=== PATIENT | female | born 1975 | race Caucasian/White ===

== ENCOUNTER 2021-04-28 20:33 | Emergency (ER) | payer OTHER ==
--- OUTSIDE RECORDS SUMMARY | 2021-04-28 20:35 | XMS REPORT | Continuity of Care Document ---
:1975 Author Organization [facility] Address [address] [place] [address] Care Team Providers Name Role Phone Unavailable Unavailable Unavailable Problems Condition Condition Condition Status Onset Resolution Last Treating Co mments Source Name Details Category Date Date Treatment Clinician Date Anxiety Anxiety Problem [facility] Vaginal Vaginal Problem Active [facility] Acute Acute Problem Active [facility] right-side right-side Connie kes - d low back d low back Me moria pain pain l without without [facility] sciatica sciatica ent Clinics PCOS PCOS Problem Active [facility] (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 Medications Ordered Filled Start Stop Current Ordering Indication Dosage Frequency Signature Comments Components Source Medication Medication Date Date Medication? Clinician (SIG) Name Name Paroxetine Paroxetine Yes Laura [address] [facility] HCl HCl 8-27 [facility] in the [facility] - 00:00: morning Memoria 00 l [facility]ics Adipex-P Adipex-P Yes Laura [address] [facility] Procedures This patient has no known procedures. Encounters Start End Encounter Admission Attending Care Care Encounter Source Date/Time Date/Time Type Type Clinicians Facility Department ID 2019-09-15 2019-09-15 Outpatient [facility] [id number] [facility] [address] 15:40:00 15:40:00 [facility] 2019-06-30 2019-06-30 Outpatient [facility] [id number] [facility] 15:20:00 15:20:00 [facility] ent Clinics Results This patient has no known results.
--- NOTE | 2021-04-28 23:27 | ER ---
Nurse's Notes [facility] Name: Kimberly Osborne Age: 46 yrs Sex: Female : 1975 Arrival Date: 04/28/2021 Time: 20:36 Bed 19 Private MD: Diagnosis: Cutaneous abscess of left lower limb Presentation: 04/28 20:56 Chief complaint: Patient states: Abscess on L outer thigh since yesterday. Coronavirus ca1 screen: Client denies travel out of the [place] in the last 14 days. At this time, the client does not indicate any symptoms associated with coronavirus-19. Ebola Screen: Patient negative for fever greater than or equal to 101.5 degrees Fahrenheit, and additional compatible Ebola Virus Disease symptoms Patient denies exposure to infectious person. Patient denies travel to an Ebola-affected area in the 21 days before illness onset. No symptoms or risks identified at this time. Initial Sepsis Screen: Does the patient meet any 2 criteria? No. Patient's initial sepsis screen is negative. Does the patient have a suspected source of infection? No. Patient's initial sepsis screen is negative. Risk Assessment: Do you want to hurt yourself or someone else? Patient reports no desire to harm self or others. Onset of symptoms was April 28, 2021. 20:56 Method Of Arrival: Ambulatory ca1 20:56 Acuity: DEVIN 4 ca1 Triage Assessment: 23:00 General: Appears in no apparent distress. comfortable, Behavior is calm, cooperative. rr5 23:00 Bite description: bite sustained to lateral aspect of left thigh by an unknown animal, rr5 animal information: vaccination(s) is unknown. [employer]: 20:58 LMP N/A - Post-menopause ca1 Historical: - Allergies: 20:58 No Known Allergies; ca1 - Home Meds: 20:58 Amoxicillin Oral [Active]; ca1 - PMHx: 20:58 None; ca1 - PSHx: 20:58 ; ca1 - Immunization history:: Client reports receiving the 2nd dose of the Covid vaccine, Client reports receiving the 1st dose of the Covid vaccine, Flu vaccine is not up to date. - Social history:: Smoking status: Patient denies any tobacco usage or history of. Screenin:00 Abuse screen: Denies threats or abuse. Denies injuries from another. Nutritional rr5 screening: No deficits noted. Tuberculosis screening: No symptoms or risk factors identified. Fall Risk None identified. Total Mo Fall Scale indicates No Risk (0-24 pts). Assessment: 23:00 General: Appears in no apparent distress. comfortable, Behavior is calm. rr5 23:00 Pain: Complains of pain in lateral aspect of left thigh Pain Quality of pain is rr5 described as aching, Pain began gradually, Is intermittent. Neuro: Level of Consciousness is awake, alert, obeys commands, Oriented to person, place, time. Cardiovascular: Patient's skin is warm and dry. Respiratory: Airway is patent Respiratory effort is even, unlabored, Respiratory pattern is regular, symmetrical. Derm: Skin is intact, is healthy with good turgor, Skin is dry, Skin is pink, warm \T\ dry. Skin temperature is warm Wound noted lateral aspect of left thigh Wound is redness and warm to touch. 23:50 Reassessment: Patient appears in no apparent distress at this time. Patient is alert, rr5 oriented x 3, equal unlabored respirations, skin warm/dry/pink. discharge instruction given and explained without complaints made. Vital Signs: 20:56 BP 162 / 79; Pulse 71; Resp 18; Temp 98.8(TE); Pulse Ox 100% on R/A; Weight 78.47 kg ca1 (R); Height 5 ft. 6 in. (167.64 cm) (R); Pain 5/10; 23:50 BP 134 / 85; Pulse 75; Resp 19; Pulse Ox 98% ; rr5 20:56 Body Mass Index 27.92 (78.47 kg, 167.64 cm) ca1 ED Course: 20:36 Patient arrived in ED. bp1 20:57 Triage completed. ca1 20:58 Arm band placed on right wrist. ca1 23:00 Patient has correct armband on for positive identification. Bed in low position. Call rr5 light in reach. 23:02 Tomer Moreno RN is Primary Nurse. rr5 23:05 Iam Chappell PA is PHCP. jmm 23:05 Dominick Martin MD is Attending Physician. jmm 23:26 Ivan Maddox MD is Referral Physician. jmm 23:51 No provider procedures requiring assistance completed. Patient did not have IV access rr5 during this emergency room visit. Administered Medications: 23:50 Drug: Clindamycin 300 mg Route: PO; rr5 23:52 Follow up: Response: Medication administered at discharge. rr5 23:50 Drug: Doxycycline 100 mg Route: PO; rr5 23:52 Follow up: Response: Medication administered at discharge. rr5 Outcome: 23:27 Discharge ordered by . teena 23:51 Discharged to home ambulatory. rr5 23:51 Condition: stable 23:51 Discharge instructions given to patient, Instructed on discharge instructions, follow up and referral plans. medication usage, Demonstrated understanding of instructions, follow-up care, medications, Prescriptions given X 2. 23:52 Patient left the ED. rr5 Signatures: Iam Chappell PA PA jmm Roque, Raymond, RN RN rr5 Estela Billy RN RN ca1 Luz Marina Webber [facility]
--- NOTE | 2021-04-28 23:27 | EDPHYS ---
Physician Documentation [facility] Name: Kimberly Osborne Age: 46 yrs Sex: Female : 1975 Arrival Date: 04/28/2021 Time: 20:36 Bed 19 Private MD: ED Physician Dominick Martin HPI: 04/28 23:23 This 46 yrs old Female presents to ER via Ambulatory with complaints of jmm Insect Bite. 23:23 The patient presents with an abscess of the left leg. Onset: The symptoms/episode jmm began/occurred gradually, 1 day(s) ago. Possible cause(s): unknown. Associated signs and symptoms: Pertinent positives: erythema, swelling. This is a 46 year old female with no chronic medical conditions that presents to the ED with complaints of left leg pain and swelling. Denies fever. Denies known injury. . [employer]ER BLASTING: 20:58 LMP N/A - Post-menopause ca1 Historical: - Allergies: 20:58 No Known Allergies; ca1 - Home Meds: 20:58 Amoxicillin Oral [Active]; ca1 - PMHx: 20:58 None; ca1 - PSHx: 20:58 ; ca1 - Immunization history:: Client reports receiving the 2nd dose of the Covid vaccine, Client reports receiving the 1st dose of the Covid vaccine, Flu vaccine is not up to date. - Social history:: Smoking status: Patient denies any tobacco usage or history of. ROS: 23:23 Constitutional: Negative for fever, chills, and weight loss, Cardiovascular: Negative jmm for chest pain, palpitations, and edema, Respiratory: Negative for shortness of breath, cough, wheezing, and pleuritic chest pain. 23:23 Skin: Positive for erythema, swelling. 23:23 All other systems are negative. Exam: 23:23 Constitutional: This is a well developed, well nourished patient who is awake, alert, jmm and in no acute distress. Head/Face: atraumatic. Eyes: EOMI, no conjunctival erythema appreciated ENT: Moist Mucus Membranes Neck: Trachea midline, Supple Chest/axilla: Normal chest wall appearance and motion. Cardiovascular: Regular rate and rhythm. No edema appreciated Respiratory: Normal respirations, no respiratory distress appreciated Abdomen/GI: Non distended, soft Back: Normal ROM 23:23 Skin: erythema and induration appreciated to the left out thigh. non fluctuant. 23:23 Neuro: Orientation: is normal, Mentation: is normal, Memory: is normal. 23:23 Psych: Behavior/mood is pleasant, cooperative. Vital Signs: 20:56 BP 162 / 79; Pulse 71; Resp 18; Temp 98.8(TE); Pulse Ox 100% on R/A; Weight 78.47 kg ca1 (R); Height 5 ft. 6 in. (167.64 cm) (R); Pain 5/10; 23:50 BP 134 / 85; Pulse 75; Resp 19; Pulse Ox 98% ; rr5 20:56 Body Mass Index 27.92 (78.47 kg, 167.64 cm) ca1 MDM: 23:21 Patient medically screened. [facility] 23:25 Data reviewed: vital signs, nurses notes. Counseling: I had a detailed discussion with teena the patient and/or guardian regarding: the historical points, exam findings, and any diagnostic results supporting the discharge/admit diagnosis, the need for outpatient follow up, to return to the emergency department if symptoms worsen or persist or if there are any questions or concerns that arise at home. ED course: Patient is alert and non toxic in appearance in the ED. No signs of sepsis. Advised to discontinue amoxicillin. Given strict return precautions. Patient understood and agrees with the plan of care. . Administered Medications: 23:50 Drug: Clindamycin 300 mg Route: PO; rr5 23:52 Follow up: Response: Medication administered at discharge. rr5 23:50 Drug: Doxycycline 100 mg Route: PO; rr5 23:52 Follow up: Response: Medication administered at discharge. rr5 Disposition: 04/29 06:40 Co-signature as Attending Physician, Dominick Martin MD. [email or web address] Disposition: 04/28/21 23:27 Discharged to Home. Impression: Cutaneous abscess of left lower limb. - Condition is Stable. - Discharge Instructions: Skin Abscess. - Prescriptions for Clindamycin HCl 300 mg Oral Capsule - take 1 capsule by ORAL route every 6 hours for 10 days; 40 capsule. Doxycycline Monohydrate 100 mg Oral Tablet - take 1 tablet by ORAL route every 12 hours for 10 days; 20 tablet. - Medication Reconciliation Form, Thank You Letter, Antibiotic Education, Prescription Opioid Use form. - Follow up: Ivan Maddox MD; When: 2 - 3 days; Reason: Recheck today's complaints, Continuance of care, Re-evaluation by your physician. Signatures: Iam Chappell PA PA jmm Roque, Raymond, RN RN rr5 Estela Billy RN RN ca1 Dominick Martin MD MD 7 Corrections: (The following items were deleted from the chart) 04/28 23:52 23:27 04/28/2021 23:27 Discharged to Home. Impression: Cutaneous abscess of left lower rr5 limb. Condition is Stable. Forms are Medication Reconciliation Form, Thank You Letter, Antibiotic Education, Prescription Opioid Use. Follow up: Ivan Maddox; When: 2 - 3 days; Reason: Recheck today's complaints, Continuance of care, Re-evaluation by your physician. teena
[2021-04-29] MEDS ORDERED: DOXYCYCLINE 100 MG CAP PO ONE (00:01)
[2021-04-29 00:46] VITALS: BP 162/79; TEMP 98.8; O2SAT 100
== END 2021-04-28 23:52 | disposition home or self-care (01) ==
LOC: ER 20:33
DX: L02.416 Cutaneous abscess of left lower limb (principal)
CPT/HCPCS: 99283